=== PATIENT | male | born 1965 | race African-American/Black ===

== ENCOUNTER 2019-10-06 22:33 | Emergency (ER) | payer BC ==
[2019-10-06] MEDS ORDERED: Ketorolac Tromethamine 60 MG/2 ML VIAL ONE (23:07)
--- NOTE | 2019-10-06 23:37 | RAD ---
Exam:4 views right knee HISTORY: Pain. Swelling. COMPARISON: None FINDINGS: No joint effusion. No fracture. No malalignment. Preserved joint spaces. IMPRESSION: No fracture or dislocation. No significant loss of joint space height.
== END 2019-10-06 23:49 | disposition home or self-care (01) ==
LOC: ERS 22:33
DX: M25.561 Pain in right knee (principal); I10 Essential (primary) hypertension
CPT/HCPCS: 96372; J1885